=== PATIENT | male | born 1950 | race Caucasian/White ===

== ENCOUNTER 2022-07-17 13:37 | Emergency (ER) | payer MEDICAID ==
[~2022-07-17] VITALS: Ht 182.9 cm; Wt 90.7 kg
[2022-07-17] VITALS (12 sets, daily range): BP systolic 127–182; BP diastolic 78–94
[2022-07-17 14:03] LABS: BASO% 0.4 % (0-3); EOS% 3.2 % (0-8); HEMATOCRIT 42.7 % (39.0-50.0); IMMATURE GRANULOCYTES 0.1 % (0.0-5.0); LYMPH% 42.9 % (15-41); MEAN CELL VOLUME 96.4 fL CALC (80.0-100.0); MEAN CORPUSCULAR HGB 31.6 pG CALC (26.0-32.0); MEAN CORPUSCULAR HGB CONC 32.8 g/dL CAL (32.0-36.0); NEUT# 4.07 thou/uL (1.82-7.42); NEUT% 43.4 % (42-76); RED BLOOD COUNT 4.43 mill/uL (4.70-6.10); RED CELL DISTRI WIDTH 12.8 % (11.5-15.5)
[2022-07-17] MEDS ORDERED: TOPROL XL25 M1 PO (14:10)
[2022-07-17] MEDS ORDERED: ASPIRIN81 MG PO (14:11)
[2022-07-17] MEDS ORDERED: COQ-10100 MG PO (14:11)
[2022-07-17] MEDS ORDERED: ALPRAZOLAM0.25 MG PO ×2 (14:11→18:01)
[2022-07-17] MEDS ORDERED: ZETIA10 MG PO (14:12)
[2022-07-17] MEDS ORDERED: CLOPIDOGREL75 MG PO (14:13)
[2022-07-17] MEDS ORDERED: ALLERGY RELIEF10 MG PO (14:13)
[2022-07-17 14:14] LABS: ALBUMIN 4.7 g/dL (3.2-5.0); ALKALINE PHOSPHATASE 62 u/l (38-126); ANION GAP 15 (6-22 (CALC)); BUN 17 mg/dL (8-23); BUN/CREATININE RATIO 17 (12-20 (CALC)); CARBON DIOXIDE 24 mmol/l (22-30); CHLORIDE 105 mmol/l (95-108); GFR FOR AFR.AMER. > 60 ML/MIN (>=60 (CALC)); GFR OTHER RACES > 60 ML/MIN (>=60 (CALC)); POTASSIUM 4.3 mmol/l (3.5-5.1); SGOT/AST 44 u/l (19-48); SODIUM 139 mmol/l (137-146); TOTAL PROTEIN 8.1 g/dL (6.3-8.2)
[2022-07-17] MEDS ORDERED: CRESTOR20 MG PO (14:14)
[2022-07-17] MEDS ORDERED: PROTONIX40 M2 PO (14:15)
[2022-07-17] MEDS ORDERED: MULTI VIT PO (14:32)
== END 2022-07-17 18:22 | disposition home or self-care (01) ==
LOC: ED 13:37
PROVIDERS: Family Medicine
DX: R07.9 Chest pain, unspecified (principal); I10 Essential (primary) hypertension; F41.9 Anxiety disorder, unspecified; E78.00 Pure hypercholesterolemia, unspecified; I25.2 Old myocardial infarction; K21.9 Gastro-esophageal reflux disease without esophagitis; Z95.5 Presence of coronary angioplasty implant and graft